=== PATIENT | male | born 1970 | race Caucasian/White ===

== ENCOUNTER 2018-08-22 18:19 | Emergency (ER) | payer MEDICARE ==
[~2018-08-22] VITALS: Ht 188 cm; Wt 81.7 kg
[~2018-08-22 18:19] MED LIST: ASPI325 PO; AZIT250 PO; Amitriptyline100 MG PO; CEPH500 PO; CYCL10 PO; ERYT1OIN RIGHTEYE; ERYT500 PO; HYDACE10B PO; HYDACE5 PO; HYDACE7.5 PO; HYDPAM50 PO; NAPR500 PO; OMEP40CA12 PO; OXYACE5T PO; PRAV10 PO; SULTRIDS PO; [UNRECOGNIZED DRUG - OTHER]
[2018-08-22] MEDS ORDERED: MICROZIDE12.5 M1 (18:58)
[2018-08-22] MEDS ORDERED: FLUO10 (18:58)
[2018-08-22] MEDS ORDERED: OXYC15ER (18:59)
== END 2018-08-22 21:34 | disposition home or self-care (01) ==
LOC: ER 18:19
DX: H53.8 Other visual disturbances (principal); R51 Headache; Z88.0 Allergy status to penicillin; Z79.899 Other long term (current) drug therapy; Z79.891 Long term (current) use of opiate analgesic; I10 Essential (primary) hypertension; F17.210 Nicotine dependence, cigarettes, uncomplicated
CPT/HCPCS: 70496; 70498; 99284-25; Q9967

== ENCOUNTER 2018-09-05 15:05 | Emergency (ER) | payer MEDICARE ==
[~2018-09-05] VITALS: Ht 188 cm; Wt 81.7 kg
[~2018-09-05 15:05] MED LIST changes: +FLUO10; +MICROZIDE12.5 M1; +OXYC15ER
[2018-09-05] MEDS ORDERED: Amlodipine-Ben1 EAC3 PO (15:11)
[2018-09-05] MEDS ORDERED: FURO40 PO (15:12)
[2018-09-05] MEDS ORDERED: Neurontin 300300 MG PO (15:12)
[2018-09-05] MEDS ORDERED: Prozac20 MG PO (15:12)
[2018-09-05 15:35] LABS: BASOPHILS ABSOLUTE AUTO 0.08 K/mm3 (0.00-0.23); BASOPHILS PERCENT AUTO 1 % (0-2); EOSINOPHILS ABSOLUTE AUTO 0.14 K/mm3 (0.00-0.68); EOSINOPHILS PERCENT AUTO 2 % (0-6); Hematocrit 38.3 % (37.0-53.0); Hemoglobin 12.7 g/dL (13.5-17.5); IMMATURE GRAN ABSOLUTE AUTO 0.02 K/mm3 (0.00-0.10); IMMATURE GRAN PERCENT AUTO 0 % (0-1); LYMPHOCYTES ABSOLUTE AUTO 1.76 K/mm3 (0.84-5.20); LYMPHOCYTES PERCENT AUTO 22 % (21-46); MONOCYTES ABSOLUTE AUTO 0.61 K/mm3 (0.16-1.47); MONOCYTES PERCENT AUTO 8 % (4-13); Mean Corpuscular HGB 31.3 pg (26.0-34.0); Mean Corpuscular HGB Conc 33.2 g/dL (31.5-36.5); Mean Corpuscular Volume 94 fL (80-100); Mean Platelet Volume 10.8 fL (9.1-12.4); NEUTROPHILS ABSOLUTE AUTO 5.57 K/mm3 (1.96-9.15); NEUTROPHILS PERCENT AUTO 68 % (41-73); Platelet Count 253 K/mm3 (150-400); RDW Coefficient Variation 12.6 % (11.7-14.2); RDW Standard Deviation 43.5 fL (35.1-46.3); Red Blood Cell Count 4.06 M/mm3 (4.30-5.90); White Blood Cell Count 8.18 K/mm3 (4.00-11.30)
[2018-09-05 15:56] LABS: Alanine Aminotransfer (ALT/SGP 27 U/L (12-78); Albumin, Blood 4.6 g/dL (3.4-5.0); Albumin/Globulin Ratio 1.5 (0.8-1.8); Alk Phos 83 U/L (50-136); Anion Gap 6 mmol/L (6-16); Aspartate Aminotrans (AST/SGOT 23 U/L (12-37); Bilirubin, Total 0.3 mg/dL (0.1-1.0); Blood Urea Nitrogen 16 mg/dL (8-24); Bun/Creatinine Ratio 13.3 (12.0-20.0); CO2, Blood 27 mmol/L (21-32); Calcium, Blood 9.1 mg/dL (8.5-10.1); Chloride, Blood 107 mmol/L (98-108); Globulin, Blood 3.1 g/dL (2.2-4.0); Glomerular Filtration Rate >60 (60-); Glucose, Blood 93 mg/dL (70-99); Potassium, Blood 4.2 mmol/L (3.5-5.5); Sodium, Blood 140 mmol/L (136-145); Total Protein, Blood 7.7 g/dL (6.4-8.2); Troponin I <0.015 ng/mL (0.000-0.040)
[2018-12-17] MEDS ORDERED: Aspir 8181 MG PO (09:13)
[2018-12-17] MEDS ORDERED: OXYC15ER PO (09:13)
[2018-12-17] MEDS ORDERED: VITAMIN D350000 UNIT PO (09:14)
[2018-12-17] MEDS ORDERED: OMEPRAZOLE20 MG PO (09:14)
== END 2018-09-05 20:10 | disposition home or self-care (01) ==
LOC: ER 15:05
PROVIDERS: Physician Assistant
DX: R07.9 Chest pain, unspecified (principal); I10 Essential (primary) hypertension; M25.569 Pain in unspecified knee; G89.29 Other chronic pain; F17.210 Nicotine dependence, cigarettes, uncomplicated; Z88.0 Allergy status to penicillin; Z79.899 Other long term (current) drug therapy
CPT/HCPCS: 36415; 71046; 80053; 84484; 85025; 93005; 93010; 99285-25

== ENCOUNTER 2018-12-24 08:34 | Day surgery (SDC) | payer MEDICARE ==
[~2018-12-24] VITALS: Ht 185.4 cm; Wt 79.9 kg
[~2018-12-24 08:34] MED LIST changes: +Amlodipine-Ben1 EAC3 PO; +Aspir 8181 MG PO; +FURO40 PO; +Neurontin 300300 MG PO; +OMEPRAZOLE20 MG PO; +OXYC15ER PO; +Prozac20 MG PO; +VITAMIN D350000 UNIT PO
== END 2018-12-24 09:38 | disposition home or self-care (01) ==
LOC: ORSCSDS 08:34
PROVIDERS: Internal Medicine Gastroenterology
PROC: 0DB68ZX Excision of Stomach, Via Natural or Artificial Opening Endoscopic, Diagnostic (ICD-10-PCS; principal; 2018-12-24 09:15)
PROC: 0DB58ZX Excision of Esophagus, Via Natural or Artificial Opening Endoscopic, Diagnostic (ICD-10-PCS; principal; 2018-12-24 09:15)
PROC: 0D757ZZ Dilation of Esophagus, Via Natural or Artificial Opening (ICD-10-PCS; principal; 2018-12-24 09:15)
DX: R13.10 Dysphagia, unspecified (principal); R63.4 Abnormal weight loss; K21.0 Gastro-esophageal reflux disease with esophagitis; K29.50 Unspecified chronic gastritis without bleeding; I10 Essential (primary) hypertension; G47.33 Obstructive sleep apnea (adult) (pediatric); F17.200 Nicotine dependence, unspecified, uncomplicated; E78.5 Hyperlipidemia, unspecified; Z79.82 Long term (current) use of aspirin; Z79.899 Other long term (current) drug therapy
CPT/HCPCS: 88305; 88342; J2250; J2704; J7120

== ENCOUNTER 2019-03-06 14:37 | Emergency (ER) | payer MEDICARE ==
[~2019-03-06] VITALS: Ht 185.4 cm; Wt 79.4 kg
[2019-03-06] MEDS ORDERED: Vibramycin100 MG PO (16:25)
== END 2019-03-06 16:32 | disposition home or self-care (01) ==
LOC: ER 14:37
DX: S61.255A Open bite of left ring finger without damage to nail, initial encounter (principal); M65.4 Radial styloid tenosynovitis [de Quervain]; I10 Essential (primary) hypertension; M25.569 Pain in unspecified knee; M54.9 Dorsalgia, unspecified; G89.29 Other chronic pain; Z88.0 Allergy status to penicillin; Z88.1 Allergy status to other antibiotic agents; Z79.82 Long term (current) use of aspirin; Z79.899 Other long term (current) drug therapy; Z87.891 Personal history of nicotine dependence; W55.81XA Bitten by other mammals, initial encounter
CPT/HCPCS: 99283

== ENCOUNTER → 2021-09-13 | Outpatient (CLI) | payer MEDICARE ==
[~2021-09-13] MED LIST changes: +Vibramycin100 MG PO
== END | disposition home or self-care (01) ==
LOC: LAB SHORT 16:30
DX: S81.801A Unspecified open wound, right lower leg, initial encounter (principal)
CPT/HCPCS: 87070; 87075; 87205

== ENCOUNTER 2023-01-23 15:58 | Emergency (ER) | payer MEDICARE ==
[~2023-01-23] VITALS: Ht 188 cm; Wt 81.7 kg
[2023-01-23 16:28] LABS: BASOPHILS ABSOLUTE AUTO 0.12 K/mm3 (0.00-0.23); BASOPHILS PERCENT AUTO 1 % (0-2); EOSINOPHILS ABSOLUTE AUTO 0.08 K/mm3 (0.00-0.68); EOSINOPHILS PERCENT AUTO 1 % (0-6); Hematocrit 45.5 % (37.0-53.0); Hemoglobin 15.3 g/dL (13.5-17.5); IMMATURE GRAN ABSOLUTE AUTO 0.02 K/mm3 (0.00-0.10); IMMATURE GRAN PERCENT AUTO 0 % (0-1); LYMPHOCYTES ABSOLUTE AUTO 2.14 K/mm3 (0.84-5.20); LYMPHOCYTES PERCENT AUTO 20 % (21-46); MONOCYTES ABSOLUTE AUTO 0.82 K/mm3 (0.16-1.47); MONOCYTES PERCENT AUTO 8 % (4-13); Mean Corpuscular HGB 30.5 pg (26.0-34.0); Mean Corpuscular HGB Conc 33.6 g/dL (31.5-36.5); Mean Corpuscular Volume 91 fL (80-100); Mean Platelet Volume 9.9 fL (9.1-12.4); NEUTROPHILS ABSOLUTE AUTO 7.58 K/mm3 (1.96-9.15); NEUTROPHILS PERCENT AUTO 71 % (41-73); Platelet Count 341 K/mm3 (150-400); RDW Coefficient Variation 12.9 % (11.7-14.2); RDW Standard Deviation 42.9 fL (35.1-46.3); Red Blood Cell Count 5.02 M/mm3 (4.30-5.90); White Blood Cell Count 10.76 K/mm3 (4.00-11.30)
[2023-01-23 16:51] LABS: Alanine Aminotransfer (ALT/SGP 30 U/L (12-78); Albumin, Blood 4.1 g/dL (3.4-5.0); Albumin/Globulin Ratio 1.1 (0.8-1.8); Alk Phos 115 U/L (50-136); Anion Gap 6 mmol/L (6-16); Aspartate Aminotrans (AST/SGOT 24 U/L (12-37); Bilirubin, Total 0.2 mg/dL (0.1-1.0); Blood Urea Nitrogen 20 mg/dL (8-24); Bun/Creatinine Ratio 13.7 (12.0-20.0); CO2, Blood 31 mmol/L (21-32); Calcium, Blood 10.4 mg/dL (8.5-10.1); Chloride, Blood 105 mmol/L (98-108); Creatinine, Blood 1.46 mg/dL (0.60-1.20); Ethanol (Alcohol), Blood, Med <3 mg/dL; Globulin, Blood 3.7 g/dL (2.2-4.0); Glomerular Filtration Rate 57 (60-); Glucose, Blood 118 mg/dL (70-99); Potassium, Blood 4.2 mmol/L (3.5-5.5); Sodium, Blood 142 mmol/L (136-145); Total Protein, Blood 7.8 g/dL (6.4-8.2)
[2023-01-23 19:30] VITALS: BP 173/111
[2023-01-23 19:38] LABS: Ethanol (Alcohol), Blood, Med <3 mg/dL; Magnesium, Blood 2.4 mg/dL (1.6-2.4)
[2023-01-23] MEDS ORDERED: AMLO5 PO (20:12)
== END 2023-01-23 20:29 | disposition home or self-care (01) ==
LOC: ER 15:58
PROVIDERS: Emergency Medicine; Physician Assistant
DX: R41.82 Altered mental status, unspecified (principal); I10 Essential (primary) hypertension; F10.10 Alcohol abuse, uncomplicated; F15.10 Other stimulant abuse, uncomplicated; F17.200 Nicotine dependence, unspecified, uncomplicated
CPT/HCPCS: 70450; 71046; 80053; 82140; 83735; 84484; 85025; 93005; 93010; 96360; 99285-25; A9270; J7030